=== PATIENT | female | born 1950 | race Caucasian/White ===

== ENCOUNTER 2017-03-13 10:19 | Emergency (ER) | payer BC, MEDICARE ==
[2017-03-13 10:51] LABS: BASOPHILS 0.5 % (0-2); EOSINOPHILS 1.6 % (0-7); HEMATOCRIT 41.7 % (36.0-48.0); HEMOGLOBIN 13.7 g/dL (12-16); IMMATURE GRANULOCYTES 0.5 % (0-5); LYMPHOCYTES 20.9 % (15-50); MCH 30.6 pg (26.0-34.0); MCHC 32.9 g/dL (31.0-37.0); MCV 93.1 fL (80.0-100.0); MEAN PLATELET VOLUME 10.5 fL (7.4-10.4); MONOCYTES 11.5 % (2-11); PLATELET COUNT 238 10x3/uL (130-400); RBC 4.48 10x6/uL (4.00-5.40)
[2017-03-13 11:23] LABS: ALBUMIN 3.4 g/dL (3.4-5.0); ALKALINE PHOSPHATASE 94 U/L (46-116); ALT (SGPT) 33 U/L (10-68); CALC OSMOLALITY 282 mosm/kg (275-300); CHLORIDE - SERUM 103 mmol/L (98-107); CKMB 0.7 U/L (0.0-3.6); CREATINE KINASE 147 UL (21-215); CREATININE - SERUM 0.9 mg/dL (0.6-1.3); GLUCOSE 95 mg/dL (74-106); MAGNESIUM - SERUM 1.8 mg/dL (1.8-2.4); POTASSIUM - SERUM 5.3 mmol/L (3.5-5.1); PROTEIN - SERUM 7.1 g/dL (6.4-8.2); SODIUM 140 mmol/L (136-145); TROPONIN-I < 0.017 ng/mL (0.000-0.060); UREA NITROGEN 23 mg/dL (7-18); eGFR NON AFRICAN AMERICAN 66 mL/min (90-120)
[2017-03-13 11:43] LABS: LDL-HDL RATIO 1.7 ratio (1.5-3.5)
== END 2017-03-13 16:16 | disposition home or self-care (01) ==
LOC: D.ER 10:19
PROVIDERS: Family Medicine
DX: R07.89 Other chest pain (principal); I73.00 Raynaud's syndrome without gangrene

== ENCOUNTER 2018-08-15 15:01 | Emergency (ER) | payer MEDICARE, BC ==
[~2018-08-15] VITALS: Ht 165.1 cm; Wt 69.1 kg
[2018-08-15 15:34] VITALS: Ht 165.1 cm; Wt 69.1 kg
[2018-08-15] MEDS ORDERED: PROCARDIA10 MG PO (15:37)
[2018-08-15] MEDS ORDERED: DIOVAN40 MG PO (15:37)
[2018-08-15 18:18] VITALS: BP 112/61
== END 2018-08-15 17:48 | disposition home or self-care (01) ==
LOC: D.ER 15:01
DX: I80.02 Phlebitis and thrombophlebitis of superficial vessels of left lower extremity (principal)